=== PATIENT | female | born 1980 | race African-American/Black ===

== ENCOUNTER 2017-09-10 20:34 | Emergency (ER) | payer BC, OTHER, SELFPAY ==
[2017-09-10] MEDS ORDERED: Acetaminophen 500 MG TAB ONE (20:45)
[2017-09-10] MEDS ORDERED: Dexamethasone 4 mg/ml Vial ONE (23:02)
== END 2017-09-10 23:28 | disposition home or self-care (01) ==
LOC: ERS 20:34
DX: J06.9 Acute upper respiratory infection, unspecified (principal)
CPT/HCPCS: 96372; J1100